=== PATIENT | female | born 1995 | race Two or more races ===

== ENCOUNTER 2022-11-04 07:43 | Inpatient (IN) ==
[2022-11-04] MEDS ORDERED: OXYTOCIN 30 UNITS/500 ML BAG IV PRN ×3 (07:47→15:41)
[2022-11-04] MEDS ORDERED: LIDOCAINE 1% LOCAL 20 ML VIAL INFIL PRN (07:47)
[2022-11-04 08:30] LABS: Hematocrit (blood only) 38.1 % (37.0-47.0); Hemoglobin 12.9 g/dl (12.0-16.0); Mean Corpuscular Hemoglobin 29.8 pg (25.0-34.0); Mean Corpuscular Hgb Conc 33.9 g/dL (32.0-36.0); Mean Platelet Volume 10.9 fL (9.4-12.4); Platelet Count 219 K/uL (130-400); RDW Coefficient of Variation 13.6 % (11.5-14.5); RDW Standard Deviation 43.8 fL (36.4-46.3); Red Blood Count 4.33 M/uL (4.20-5.40)
--- NOTE | 2022-11-04 09:33 | History & Physical Report ---
Date of Service November 04, 2022 Assessment & Plan (1) Encounter for induction of labor: (2) Post term over 40 weeks: (3) Not immune to rubella: Plan admit, labs. ripening balloon placed after informed consent. start pitocin, arom with adequate pattern. fhts categ 1. plan pp mmr. pt desires to proceed. Admission and Anticipated Discharge Date Admission Date: November 04, 2022 History of Present Illness Chief Complaint: planned induction Primary Care Provider: NO PCP 27yo at 40+wks cheryl presents to L&D for planned induction. Patient denies regular ctx, no rom, no vb. +FM. PNC c/b 1. prior delivery at 36wks 2. non immune rubella, plan mmr pp PNL rh pos, r--non immune, gbs neg OBH: 36wk GYNH: no stds Allergies Allergy/AdvReac Type Severity Reaction Status Date / Time No Known Allergies Allergy Verified 11/03/22 15:07 Home Medications Medication Instructions Recorded Confirmed Type prenat.vits,skinny,wql-hqgf-[id number] 1 tab PO DAILY 04/22/22 11/03/22 History Patient History Medical History (Updated 11/04/22 @ 09:32 by Rhiannon Angela MD, FACOG) MRSA (methicillin resistant Staphylococcus aureus) Left breast abscess in 2021 Surgical History Status post incision and drainage Left breast Family History Aunt Breast cancer Denies family history of Ovarian cancer Colorectal cancer Social History (Updated 03/26/22 @ 11:00 by Elsa Perdomo) Smoking Status: Never smoker Hx Alcohol Use: No Hx Substance Use: No Preferred Language: Belgian Communication Ability: Effective Digital Marketer Required: No Beliefs That Will Affect Care: Cultural Cultural Beliefs: Patient requested to be notified if any male provider is coming in her room sourav she can cover appropriately. marital status: marital status details: Stella Macias(27) [phone] Current Living Situation: Spouse Current Living Situation Comment: lives with spouse, son, no pets current occupational status: unemployed current occupation: homemaker Other Information That Helps Us Care for You: No Feels Safe at Home: Yes Safety Concerns: Feels Safe At This Time Review of Systems as per Subjective / HPI Physical Exam Constitutional: WD/WN, vitals as above Respiratory: normal respiratory effort, lungs clear to auscultation Cardiovascular: Rate/Rhythm: regular rate and regular rhythm Gastrointestinal (Abdomen): soft gravid nt efw 7-8# Musculoskeletal: no edema nontender calves Neurologic: grossly normal Psychiatric: A+Ox3, euthymic affect Genitourinary: Manual OB Exam: + cervical dilation (2), + cervical effacement 50% and + station -2 OB Exam Monitor Tracing: + external FHT monitor used, + external uterine monitor used, + category I and + normal FHT variability PROCEDURE: sse cx visualized, grasped on ant lip with ring forcep, montiel through os and balloon inflated with 40cc sterile water. Spec removed, montiel taped to leg. pt [place] well. Results & Data Vital Signs (Past 12 Hours) Vital Signs Temp Pulse Resp BP 11/04/22 08:18 99.1 F 18 11/04/22 07:53 84 121/67 Coding Level of Care Code None Diagnoses Encounter for induction of labor Z34.90 Post term over 40 weeks O48.0 Not immune to rubella Z78.9 CPT Codes Misx Procedure Codes - 03078 Placement of cervical dilator: 53693 Placement of cervical dilator ([id number])
[2022-11-04] MEDS: LACTATED RINGER'S 1,000 ML IV PRN ×2 (09:35→13:09)
[2022-11-04] MEDS ORDERED: ePHEDrine sulfate 50 MG/ML AMP ONE (12:47)
[2022-11-04] MEDS ORDERED: fentaNYL citrate PF 100 MCG/2 ML VIAL ONE (12:47)
[2022-11-04] MEDS ORDERED: SODIUM CHLORIDE 0.9% PF INJ 10 ML VIAL ONE (12:47)
[2022-11-04] MEDS ORDERED: BUPIVACAINE 0.25% PF 30 ML VIAL ONE (12:47)
[2022-11-04] MEDS ORDERED: LIDOCAINE 2%/EPINEPHRINE 1:200,000 20 ML PF ONE (12:47)
[2022-11-04] MEDS ORDERED: fentaNYL 2MCG/ML ROPIVACAINE 1.25MG/ML 100 ML BAG EPI ONE (12:48)
--- NOTE | 2022-11-04 13:01 | Anesthesiology Consultation ---
Date of Service November 04, 2022 Assessment & Plan Chart Review Chart Review: Acceptable Risk for Labor Epidural Consults Requested none ASA ASA2 Proposed Anesthesia Anesthesia Type: Labor Epidural Risk / Benefits Reviewed With: PT / POA / Parent / Guardian, Accepts Plan and Informed Consent Obtained History Height/Weight Height: 5 ft 5.75 in Weight: 87.543 kg Allergies Allergy/AdvReac Type Severity Reaction Status Date / Time No Known Allergies Allergy Verified 11/03/22 15:07 Medications Home Medications Medication Instructions Recorded Confirmed Last Taken prenat.vits,skinny,hcc-htna-elfcl 1 tab PO DAILY 04/22/22 11/03/22 11/04/22 07:00 Active Medications Generic Name Dose Route Start Last Admin Trade Name Freq PRN Reason Stop Dose Admin Lactated Ringer's 1,000 mls @ 125 mls/hr 11/04/22 07:47 11/04/22 12:40 Lr IV 11/06/22 07:46 999 mls/hr .Q8H PRN Infusion L&D Protocol Protocol Oxytocin 30 units in 500 mls @ 12 mls/hr 11/04/22 07:47 11/04/22 12:35 Pitocin IV 11/06/22 07:46 0.84 units/hr .Q24H PRN 14 mls/hr Labor Induction/Augmentation Titration Protocol 0.72 UNITS/HR Past Medical History Medical History MRSA (methicillin resistant Staphylococcus aureus) Left breast abscess in 2021 Exercise / Class Metabolic Activity II 4-5 Yardwork/Stairs/Walk up hill Past Family History Family History Aunt Breast cancer Denies family history of Ovarian cancer Colorectal cancer Past Surgical History Surgical History Status post incision and drainage Left breast Past Anesthesia History No Hx of Anesthesia Complications and No Family Hx of Anesthesia Complications History of PONV No Hx of PONV and No Hx of Motion Sickness Social History Smoking Status: Never smoker Hx Alcohol Use: No Hx Substance Use: No substance use type: does not use Physical Exam Vital Signs Last Vital Signs Temp 98.1 F 11/04/22 11:50 Pulse 64 11/04/22 12:38 Resp 18 11/04/22 11:50 BP 142/80 H 11/04/22 12:38 ENMT Mouth: no dentition abnormality Thyromental Distance: > or= 3.5 Finger Breadths Mallampati Class: II Neck normal visual inspection Respiratory normal respiratory effort Auscultation: lungs clear to auscultation bilaterally Cardiovascular Rate/Rhythm: regular rate and regular rhythm Testing Laboratory Results 11/04/22 08:12
[2022-11-04] MEDS ORDERED: fentaNYL 2MCG/ML ROPIVACAINE 1.25MG/ML 100 ML BAG EPI PRN (13:30)
[2022-11-04] MEDS ORDERED: ePHEDrine sulfate 50 MG/ML AMP IV PRN (13:30)
[2022-11-04] MEDS ORDERED: diphenhydrAMINE 50 MG/ML VIAL IV PRN (13:30)
[2022-11-04] MEDS ORDERED: NALBUPHINE HCL INJ 10 MG/ML AMP IV PRN (13:30)
[2022-11-04] MEDS ORDERED: NALOXONE HCL 0.4 MG/1 ML VIAL/CARP IV PRN (13:30)
[2022-11-04] MEDS ORDERED: NALOXONE HCL 1 MG in SODIUM CHLORIDE 0.9% 1000ML 1,000 ML IV PRN (13:30)
[2022-11-04] MEDS ORDERED: ONDANSETRON INJ 2 MG/ML 2 ML VIAL IV PRN (13:30)
--- NOTE | 2022-11-04 13:40 | Labor Progress Brief Note ---
Date of Service November 04, 2022 Subjective Late entry, pt feeling ctx. Assessment & Plan (1) Encounter for induction of labor: (2) Post term over 40 weeks: (3) Not immune to rubella: Plan good cx change. aware of epidural as option for pain mgmt. not sure she wants. will see how arom helps labor. fhts categ 1. Admission and Anticipated Discharge Date Admission Date: November 04, 2022 Physical Exam Constitutional: WD/WN, vitals as above Genitourinary: Manual OB Exam: + cervical dilation 5 cm, + cervical effacement (75%), + station -2 and + amniotic fluid (arom) clear balloon in vagina and removed Results & Data Vital Signs (Past 12 Hours) Vital Signs Temp Pulse Resp BP Pulse Ox 11/04/22 08:18 99.1 F 18 11/04/22 13:32 98 11/04/22 13:32 67 11/04/22 13:32 106/57 L 11/04/22 13:27 98 11/04/22 13:27 73 11/04/22 13:27 100/56 L 11/04/22 13:24 72 11/04/22 13:24 113/62 11/04/22 13:22 97 11/04/22 13:22 73 11/04/22 13:17 99 11/04/22 13:17 65 11/04/22 13:12 99 11/04/22 13:12 78 11/04/22 13:07 100 11/04/22 13:07 76 11/04/22 13:02 98 11/04/22 13:02 87 11/04/22 12:38 64 11/04/22 12:38 142/80 H 11/04/22 11:50 18 11/04/22 11:50 98.1 F 18 11/04/22 11:36 61 11/04/22 11:36 131/78 11/04/22 10:34 66 11/04/22 10:34 130/77 11/04/22 09:45 71 11/04/22 09:45 121/70 11/04/22 07:52 18 11/04/22 07:52 99.1 F 18 11/04/22 07:53 84 121/67 Coding Level of Care Code None Diagnoses Encounter for induction of labor Z34.90 Post term over 40 weeks O48.0 Not immune to rubella Z78.9
[2022-11-04] MEDS ORDERED: ACETAMINOPHEN 325 MG TAB PO PRN (15:41)
[2022-11-04] MEDS ORDERED: HYDROCORTISONE ACETATE 25 MG SUPP PR PRN (15:41)
[2022-11-04] MEDS ORDERED: oxyCODONE/ACETAMINOPHEN 5mg/325mg TAB PO PRN (15:41)
[2022-11-04] MEDS ORDERED: DIPHTHERIA/TETANUS/PERTUSSIS 0.5mL SYR/VIAL (Age 7+yrs) IM ONE (15:41)
[2022-11-04] MEDS ORDERED: BENZOCAINE 20% AER SPR 82.5 GM CAN EXT PRN (15:41)
[2022-11-04] MEDS ORDERED: bisacodyL 10 MG SUPP PR PRN (15:41)
--- NOTE | 2022-11-04 15:44 | Delivery Summary ---
Vaginal Delivery Summary Date of Service November 04, 2022 Vaginal Delivery Summary The patient dilated to complete and pushed to deliver a viable female infant Apgars 8 and 9 via over intact perineum. Mouth and nose bulb suctioned at perineum. Shoulders and body delivered with ease. Infant was vigorous and crying at . Cord clamped at 30 seconds of life and to maternal abdomen where the cord was then doubly clamped and cut. Placenta delivered spontaneously and intact, three-vessel cord. Hemostasis achieved with dilute pitocin and uterine massage and drainage of the bladder for approximately 150 cc under sterile conditions. Cervix and sulci intact. EBL 300 cc. Mother and baby stable in recovery. [facility] Vaginal Delivery Charge Delivery Type Details:
[2022-11-04] MEDS ORDERED: OXYTOCIN 20 UNITS in LACTATED RINGER'S 1,000 ML IV SCH (15:45)
--- NOTE | 2022-11-04 16:18 | Anesthesia Procedure Note ---
Date of Service November 04, 2022 Anesthesia Post Epidural Note Vital Signs Vital Signs: Temp Pulse Resp BP Pulse Ox 98.2 F 70 18 138/67 100 11/04/22 15:00 11/04/22 16:09 11/04/22 15:00 11/04/22 16:09 11/04/22 15:27 Pain Intensity Lower Abdomen: Pain Intensity: 7 Notes Mental Status: alert / awake / arousable and participated in evaluation Nausea / Vomiting: adequately controlled Pain: adequately controlled Airway Patency, RR, SpO2: stable & adequate BP & HR: stable & adequate Hydration State: stable & adequate Neuraxial Anesthesia: was administered and sensory block is resolving Anesthetic Complications: no major complications apparent and Pt Satisfied with anesthetic care Epidural: Removed without complications and With tip intact
[2022-11-04] MEDS: DOCUSATE SODIUM 100 MG CAP PO SCH (22:01)
[2022-11-04] MEDS: IBUPROFEN 600 MG TAB PO PRN (23:17)
--- NOTE | 2022-11-05 06:52 | Obstetrical Progress Note ---
Date of Service November 05, 2022 Assessment & Plan (1) care following vaginal delivery: (2) History of delivery, currently : (3) Not immune to rubella: Plan Kelly is a 27 y/o female who is PPD #1 following delivery at 40w1d -Meeting all milestones -Vital signs reviewed and WNL, Hemoglobin stable -A+/GBS negative/Rubella non-immune/ Will need MMR -Follow up in 6 weeks for appointment -Continue routine care Admission and Anticipated Discharge Date Admission Date: November 04, 2022 Micah Mendoza is a 27 y/o female who is PPD #1 following delivery at 40w1d. She reports feeling well overall this morning. _ abdominal cramping & _/10 pain well managed on analgesics. Voiding _. Tolerating meals overnight and able to ambulate some. Has some persistent lochia with some improvement this morning. Currently breast feeding. Review of Systems Constitutional: no fever, no chills and no sweats Respiratory: no cough, no dyspnea and no wheezing Cardiovascular: no chest pain, no palpitations and no calf pain Genitourinary: no dysuria Neurologic: no headache(s) Physical Exam Constitutional: WD/WN, vitals as above no acute distress Respiratory: no respiratory distress Auscultation: lungs clear to auscultation bilaterally; no rales, no rhonchi and no wheezes Cardiovascular: RRR, no murmur, no edema Extremities: no calf tenderness and no edema Negative Merle's sign bilaterally. Gastrointestinal (Abdomen): Inspection/Auscultation: normal bowel sounds Genitourinary: Uterine fundus firm, palpable below the umbilicus. Results & Data Vital Signs (Past 12 Hours) Vital Signs Temp Pulse Pulse Resp BP Pulse Ox O2 Del Method 11/05/22 03:45 36.6 C 79 18 119/80 97 Room Air 11/04/22 23:15 Room Air 11/04/22 23:15 36.6 C 63 18 100/62 98 Room Air 11/04/22 19:00 36.8 C 76 20 108/67 98 Room Air Resident Activity Tracking Resident Involvement: Resident Care Provided Care Provided: OB Delivery
--- NOTE | 2022-11-05 07:20 | Obstetrical Progress Note ---
Date of Service November 05, 2022 Assessment & Plan (1) care following vaginal delivery: Plan stable, doing well. routine care. rhpos, ri, . Day #:: 1 Subjective Ambulation: ambulating normally Voiding: no voiding problems Diet Tolerance:: regular diet Lochia:: Small Feeding Type:: breast feeding denies pain. Constitutional: + as per Subjective / HPI Physical Exam Constitutional WD/WN, vitals as above Respiratory normal respiratory effort, lungs clear to auscultation Cardiovascular Rate/Rhythm: regular rate and regular rhythm Gastrointestinal (Abdomen) Inspection/Auscultation: abdomen normal to inspection Percussion/Palpation: abdomen soft Fundus firm 1cm down Musculoskeletal nt calves tr edema Neurologic grossly normal Psychiatric A+Ox3, euthymic affect Results & Data Vital Signs (Past 12 Hours) Vital Signs Temp Pulse Resp BP Pulse Ox O2 Del Method 11/05/22 03:45 97.9 F 79 18 119/80 97 Room Air 11/04/22 23:15 Room Air 11/04/22 23:15 97.9 F 63 18 100/62 98 Room Air
[2022-11-05] MEDS: PRENATAL VITAMIN 1 TAB PO SCH (07:55)
--- NOTE | 2022-11-06 06:15 | Obstetrical Progress Note ---
Date of Service November 06, 2022 Assessment & Plan (1) care following vaginal delivery: (2) History of delivery, currently : (3) Not immune to rubella: Plan Kelly is a 27 y/o female who is PPD #1 following delivery at 40w1d -Meeting all milestones -Vital signs reviewed and WNL, Hemoglobin stable -A+/GBS negative/Rubella non-immune/ Will need MMR -Follow up in 6 weeks for appointment -Continue routine care Admission and Anticipated Discharge Date Admission Date: November 04, 2022 Micah Mendoza is a 27 y/o female who is PPD #1 following delivery at 40w1d. She reports feeling well overall this morning. _ abdominal cramping & _/10 pain well managed on analgesics. Voiding _. Tolerating meals overnight and able to ambulate some. _ passing gas and _ bowel movement. Has some persistent lochia with some improvement this morning. Currently breast feeding. Review of Systems Constitutional: no fever, no chills and no sweats Respiratory: no cough, no dyspnea and no wheezing Cardiovascular: no chest pain, no palpitations and no calf pain Genitourinary: no dysuria Neurologic: no headache(s) Physical Exam Constitutional: WD/WN, vitals as above no acute distress Respiratory: no respiratory distress Auscultation: lungs clear to auscultation bilaterally; no rales, no rhonchi and no wheezes Cardiovascular: RRR, no murmur, no edema Extremities: no calf tenderness and no edema Gastrointestinal (Abdomen): Inspection/Auscultation: normal bowel sounds Results & Data Vital Signs (Past 12 Hours) Vital Signs Temp Pulse Resp BP O2 Del Method 11/05/22 22:59 36.9 C 71 16 108/63 Room Air 11/05/22 19:29 36.7 C 83 16 111/71 Room Air Resident Activity Tracking Resident Involvement: Resident Care Provided Care Provided: OB Delivery
--- NOTE | 2022-11-06 07:16 | Obstetrical Progress Note ---
Date of Service November 06, 2022 Assessment & Plan (1) care following vaginal delivery: Plan 27 yo PP2 from , doing well -Meeting all pp milestones -Rh+/rubella NI/, MMR ordered -f/u 6 weeks for appt, stable for dc home Subjective Ambulation: ambulating normally Voiding: no voiding problems Passing Gas:: Yes Diet Tolerance:: regular diet Lochia:: Small Feeding Type:: breast feeding Pain well managed with medication, some hemorrhoid discomfort Review of Systems Denies fevers, chills, n/v, WHITTEN, CP, SOB Physical Exam Constitutional WD/WN, vitals as above no acute distress Respiratory normal respiratory effort, lungs clear to auscultation Cardiovascular RRR, no murmur, no edema Gastrointestinal (Abdomen) Percussion/Palpation: abdomen soft; abdomen nontender fundus firm at umbilicus and NT Musculoskeletal BLE symmetric, nonerythematous, nontender Results & Data Vital Signs (Past 12 Hours) Vital Signs Temp Pulse Resp BP O2 Del Method 11/05/22 22:59 98.4 F 71 16 108/63 Room Air 11/05/22 19:29 98.1 F 83 16 111/71 Room Air
[2022-11-06] MEDS: PRENATAL VITAMIN 1 TAB PO SCH (08:08)
[2022-11-06] MEDS: IBUPROFEN 600 MG TAB PO PRN (08:08)
[2022-11-06] MEDS: DOCUSATE SODIUM 100 MG CAP PO SCH (08:09)
[2022-11-06] MEDS ORDERED: MEASLES, MUMPS & RUBELLA VIRUS VIAL SQ ONE (14:34)
== END 2022-11-06 16:15 | disposition home or self-care (01) | DRG 807 ==
LOC: 4S1 07:43 → 4E1 18:10